=== PATIENT | male | born 1950 | race Caucasian/White ===

== ENCOUNTER → 2016-10-21 | Outpatient (CLI) | payer BC, SELFPAY ==
--- NOTE | 2016-10-21 17:23 | MRI ---
MRI left ankle without contrast INDICATION: Ankle pain Achilles strain trauma three months ago TECHNIQUE: Noncontrast MR imaging left ankle FINDINGS: There is biconvex morphology with thickening of the distal Achilles tendon with interstitial chronic appearing low-grade partial tear and tendinosis. There is edema throughout Kager's fat pad indicating para tendinitis. Plantar aponeurosis is intact. There is mild diffuse soft tissue edema in the ankle. Mild tendinosis and fraying of the peroneal tendons. No rupture or longitudinal split. Medial tendons are intact. Indistinct or absent anterior talofibular ligament from previous ankle sprain. Mild fluid along the distal posterior tibialis tendon without split rupture or dislocation. No coalition is noted. Trace osteophytes along the ankle and posterior subtalar compartments. There is a small osteochondral lesion lateral talar dome with subchondral edema indicating overlying grade 4 chondral fissuring 5 mm wide by 9 mm in AP dimension. No unstable osseous fragment noted. IMPRESSION: Achilles tendinosis with thickening and low-grade interstitial fissuring without gagan rupture or retraction Para tendinitis with edema throughout Kager's fat pad Minimal degenerative osteoarthrosis of the ankle/hindfoot Peroneal tendinosis Small osteochondral lesion lateral talar dome with subchondral edema and cystic change suggesting overlying grade 4 chondral fissuring Electronically signed by: Julio Cesar Minaya MD 10/21/2016 12:18 PM CDT
== END ==
LOC: MRI 07:06
PROVIDERS: ATTEND Family Medicine
DX: S86.012D Strain of left Achilles tendon, subsequent encounter (principal); M19.072 Primary osteoarthritis, left ankle and foot

== ENCOUNTER → 2016-10-31 | Outpatient (CLI) | payer OTHER, SELFPAY ==
--- NOTE | 2016-11-03 17:28 | RAD ---
EXAM DESCRIPTION: Ankle,Left 3 Views CLINICAL HISTORY: 66 years, Male, PAIN IN LEFT ANKLE COMPARISON: None. TECHNIQUE: AP/lateral/oblique of the left ankle FINDINGS: There is no bone, joint, or soft tissue abnormality. IMPRESSION: 1. Normal Electronically signed by: Herbie Isaacs MD 11/03/2016 5:27 PM CDT
== END | disposition home or self-care (01) ==
LOC: RAD 08:06
PROVIDERS: ATTEND Orthopaedic Surgery
DX: M25.572 Pain in left ankle and joints of left foot (principal)

== ENCOUNTER → 2017-07-03 | Outpatient (CLI) | payer MEDICARE, OTHER | LOC: GMAB 12:11 | PROVIDERS: ATTEND Family Medicine | DX: E03.9 Hypothyroidism, unspecified (principal); Z12.5 Encounter for screening for malignant neoplasm of prostate | CPT/HCPCS: 84439; 84443; 84481; G0103 ==

== ENCOUNTER → 2019-03-17 | Outpatient (CLI) | payer MEDICARE, OTHER | LOC: GMAE 10:24 | PROVIDERS: ATTEND Family Medicine | DX: Z12.5 Encounter for screening for malignant neoplasm of prostate (principal); E03.9 Hypothyroidism, unspecified; I10 Essential (primary) hypertension; E78.2 Mixed hyperlipidemia | CPT/HCPCS: 84439; 84443; 84481; G0103 ==

== ENCOUNTER → 2019-06-28 | Outpatient (CLI) | payer MEDICARE, OTHER | LOC: GMAE 11:13 | PROVIDERS: ATTEND Family Medicine | DX: E03.9 Hypothyroidism, unspecified (principal) ==

== ENCOUNTER → 2020-04-12 | Outpatient (CLI) | payer MEDICARE, OTHER | LOC: GMAE 11:11 | PROVIDERS: ATTEND Family Medicine | DX: E03.9 Hypothyroidism, unspecified (principal); I10 Essential (primary) hypertension; E78.2 Mixed hyperlipidemia ==